=== PATIENT | male | born 1975 | race Caucasian/White ===

== ENCOUNTER 2025-07-09 07:23 | Inpatient (IN) | payer MEDICAID ==
[~2025-07-09] VITALS: Ht 167.6 cm; Wt 107.1 kg
[2025-07-09] MEDS ORDERED: METF-1211 PO (07:32)
[2025-07-09 07:51] LABS: GLUCOMETER DEV NAME(LOC) ER.7; GLUCOSE,POINT OF CARE 492 MG/DL (70-110)
[2025-07-09 07:53] LABS: PLATELET COUNT (AUTO) 174 K/uL (150-450); RED BLOOD CELL COUNT(AUTO) 5.13 MIL/uL (4.50-5.90); RED CELL DISTRIBUTION WIDTH 13.5 % (11.5-14.5); WHITE BLOOD COUNT (AUTO) 24.4 K/uL (4.5-11.0)
[2025-07-09] MEDS: INSULIN REGULAR, HUMAN 100 UNITS/ML IVP ONE (08:05)
[2025-07-09 08:07] LABS: CALCIUM, TOTAL 8.1 mg/dL (8.8-10.5); CREATININE 1.04 mg/dL (0.60-1.30); GLOMERULAR FILTR. RATE CALC > 60 mL/min (>60); SODIUM SERUM 126 mmol/L (136-145); UREA NITROGEN, BLOOD 7 mg/dL (7-18)
[2025-07-09] MEDS: SODIUM CHLORIDE 0.9% 1,000 ML IV ONE ×2 (08:07→08:46)
[2025-07-09 08:09] LABS: GLUCOSE,RANDOM 538 mg/dL (70-110)
[2025-07-09 08:11] LABS: ASPARTATE AMINOTRANSFERASE 12 U/L (15-37); TOTAL PROTEIN, SERUM 6.9 g/dL (6.4-8.2)
[2025-07-09] MEDS: MORPHINE SULFATE 4 MG/ML SYRINGE IVP ONE (08:24)
[2025-07-09] MEDS: ONDANSETRON HCL 4 MG/2 ML VIAL IVP ONE (08:24)
[2025-07-09] MEDS ORDERED: SODIUM CHLORIDE 0.9% 100 ML ONE (08:29)
[2025-07-09] MEDS ORDERED: IOHEXOL 350 MG/ML 100 ML VIAL ONE (08:29)
[2025-07-09] MEDS: PIPERACILLIN/TAZO 3.375 GM/D5W 50 ML IV ONE (08:30)
[2025-07-09] MEDS ORDERED: 0.9% SODIUM CHLORIDE 10 ML SYRINGE IVP PRN (08:30)
[2025-07-09 08:56] LABS: LACTIC ACID 1.6 mmol/L (0.4-2.0)
[2025-07-09 09:12] LABS: APPEARANCE,URINE CLEAR (CLEAR); GLUCOSE, URINE (UA) >=1000 mg/dL (NEGATIVE); LEUKOCYTE ESTERASE ,URINE TRACE (NEGATIVE); NITRATE,URINE NEGATIVE (NEGATIVE); OCCULT BLOOD,URINE NEGATIVE (NEGATIVE); SPECIFIC GRAVITIY, URINE 1.030 (1.003-1.030)
[2025-07-09 10:11] LABS: GLUCOMETER DEV NAME(LOC) ERT.7; GLUCOSE,POINT OF CARE 379 MG/DL (70-110)
[2025-07-09] MEDS: RINGERS SOLUTION,LACTATED 1,000 ML IV SCH (10:16)
[2025-07-09] MEDS: CLINDAMYCIN 300 MG/D5% WATER 50 ML IV SCH (11:38)
[2025-07-09] MEDS ORDERED: FentaNYL CITRATE PF 100 MCG/2 ML VIAL ONE (12:00)
[2025-07-09] MEDS ORDERED: LIDOCAINE/PF 2% 5 ML VIAL ONE (12:00)
[2025-07-09] MEDS ORDERED: DEXAMETHASONE SOD PHOS 4 MG/ML VIAL ONE (12:00)
[2025-07-09] MEDS ORDERED: ROCURONIUM BROMIDE 10 MG/ML 5 ML VIAL ONE (12:00)
[2025-07-09] MEDS ORDERED: CALCIUM CHLORIDE 100 MG/ML 10 ML SYRINGE IVP ONE (12:00)
[2025-07-09] MEDS ORDERED: ONDANSETRON HCL 4 MG/2 ML VIAL ONE (12:00)
[2025-07-09] MEDS ORDERED: SUGAMMADEX SODIUM 200 MG/2 ML VIAL IVP ONE (12:00)
[2025-07-09] MEDS ORDERED: PROPOFOL 1% 20 ML VIAL IVP ONE (12:00)
[2025-07-09] MEDS ORDERED: MIDAZOLAM HCL 2 MG/2 ML VIAL ONE (12:00)
[2025-07-09 12:16] LABS: GLUCOMETER DEV NAME(LOC) ERT.7; GLUCOSE,POINT OF CARE 322 MG/DL (70-110)
[2025-07-09] MEDS: PIPERACILLIN/TAZO 3.375 GM/D5W 50 ML IV SCH (13:26)
[2025-07-09] MEDS: ONDANSETRON HCL 4 MG/2 ML VIAL IVP PRN (14:56)
[2025-07-09] MEDS: MORPHINE SULFATE 4 MG/ML SYRINGE IVP PRN (15:20)
[2025-07-09 16:20] VITALS: BP 128/78; PULSE 107; RESP 17; TEMP 99.3; O2SAT 98
[2025-07-09] MEDS ORDERED: RINGERS SOLUTION,LACTATED 1,000 ML IV ONE (16:37)
[2025-07-09] MEDS: ETHYL ALCOHOL 62% ANTISEPTIC NASAL SANITIZER 0.6 ML AMPUL NASAL ONE (17:38)
[2025-07-09] MEDS: CHLORHEXIDINE GLUCONATE 2% TOWELETTE [2'S/6'S] TP ONE (17:38)
[2025-07-09] MEDS ORDERED: DEXTROSE 50%-WATER 25 GM/50 ML SYRINGE IVP PRN (20:45)
[2025-07-09 20:47] VITALS: BP 123/60; PULSE 115; RESP 17; TEMP 99.1; O2SAT 97
[2025-07-09] MEDS: INSULIN GLARGINE,HUM.REC.ANLOG 100 UNITS/ML SQ SCH (21:11)
[2025-07-09] MEDS: INSULIN LISPRO 100 UNITS/ML SQ PRN (21:12)
[2025-07-09 23:51] VITALS: BP 119/60; PULSE 10; RESP 16; TEMP 99.1; O2SAT 98
[2025-07-10 03:52] VITALS: BP 114/76; PULSE 101; RESP 18; TEMP 100.1; O2SAT 97
[2025-07-10] MEDS: *CLINICAL-LEVOFLOXACIN ORAL DOSING CLINICAL ONE (04:58)
[2025-07-10 06:10] LABS: GLUCOMETER DEV NAME(LOC) 5N.1D; GLUCOSE,POINT OF CARE 296 MG/DL (70-110)
[2025-07-10 06:44] LABS: PLATELET COUNT (AUTO) 162 K/uL (150-450); RED BLOOD CELL COUNT(AUTO) 4.40 MIL/uL (4.50-5.90); RED CELL DISTRIBUTION WIDTH 13.1 % (11.5-14.5); WHITE BLOOD COUNT (AUTO) 22.1 K/uL (4.5-11.0)
[2025-07-10 06:57] LABS: CALCIUM, TOTAL 7.5 mg/dL (8.8-10.5); CREATININE 0.89 mg/dL (0.60-1.30); GLOMERULAR FILTR. RATE CALC > 60 mL/min (>60); GLUCOSE,RANDOM 298 mg/dL (70-110); SODIUM SERUM 127 mmol/L (136-145); UREA NITROGEN, BLOOD 9 mg/dL (7-18)
[2025-07-10 08:09] LABS: BAND NEUTROPHILS % (MANUAL) 9 % (0-5); LYMPHOCYTES % (MANUAL) 4 % (22-44); MONOCYTES % (MANUAL) 5 % (2-9); SEGMENTED NEUTROPHILS % 82 % (40-70)
[2025-07-10 08:11] LABS: GLUCOMETER DEV NAME(LOC) 5S.2E; GLUCOSE,POINT OF CARE 306 MG/DL (70-110)
[2025-07-10 08:11] LABS: GLUCOMETER DEV NAME(LOC) 5S.2E; GLUCOSE,POINT OF CARE 312 MG/DL (70-110)
[2025-07-10] MEDS ORDERED: POTASSIUM CHL 10 MEQ/WATER 50 ML IV PRN (08:30)
[2025-07-10 09:01] VITALS: BP 119/78; PULSE 92; RESP 17; TEMP 98.6; O2SAT 97
[2025-07-10] MEDS: INSULIN GLARGINE,HUM.REC.ANLOG 100 UNITS/ML SQ SCH ×2 (09:23→20:34)
[2025-07-10 11:31] LABS: GLUCOMETER DEV NAME(LOC) 5N.1D; GLUCOSE,POINT OF CARE 337 MG/DL (70-110)
[2025-07-10 11:35] VITALS: BP 123/81; PULSE 72; RESP 17; TEMP 98.1; O2SAT 98
[2025-07-10 11:55] LABS: GLUCOMETER DEV NAME(LOC) 5S.2E; GLUCOSE,POINT OF CARE 355 MG/DL (70-110)
[2025-07-10] MEDS: POTASSIUM CHLORIDE 20 MEQ ER TABLET PO PRN (11:56)
[2025-07-10 16:12] VITALS: BP 137/81; PULSE 101; RESP 18; TEMP 98.1; O2SAT 97
[2025-07-10] MEDS: HEPARIN SODIUM,PORCINE 5,000 UNITS/ML VIAL SQ SCH (16:30)
[2025-07-10 18:46] LABS: GLUCOMETER DEV NAME(LOC) 5N.1D; GLUCOSE,POINT OF CARE 255 MG/DL (70-110)
[2025-07-10 20:17] VITALS: BP 114/62; PULSE 95; RESP 19; TEMP 100.6; O2SAT 98
[2025-07-10] MEDS: ACETAMINOPHEN 325 MG TABLET PO PRN (20:32)
[2025-07-10] MEDS: CLINDAMYCIN 300 MG/D5% WATER 50 ML IV SCH (20:32)
[2025-07-10] MEDS: *CLINICAL-LEVOFLOXACIN IVPB DOSING CLINICAL ONE (21:45)
[2025-07-10 22:31] LABS: GLUCOMETER DEV NAME(LOC) 5N.1D; GLUCOSE,POINT OF CARE 303 MG/DL (70-110)
[2025-07-11] VITALS (8 sets, daily range): BP systolic 111–146; BP diastolic 61–86; PULSE 83–97; RESP 17–19; TEMP 97.5–99.1; O2SAT 95–99
[2025-07-11 07:10] LABS: GLUCOMETER DEV NAME(LOC) 5N.1D; GLUCOSE,POINT OF CARE 278 MG/DL (70-110)
[2025-07-11] MEDS: LEVOFLOXACIN 750 MG/D5% WATER 150 ML IV SCH (09:13)
[2025-07-11 10:41] LABS: GLUCOMETER DEV NAME(LOC) 5S.1E; GLUCOSE,POINT OF CARE 249 MG/DL (70-110)
[2025-07-11 12:01] LABS: GLUCOMETER DEV NAME(LOC) 5N.1D; GLUCOSE,POINT OF CARE 268 MG/DL (70-110)
[2025-07-11] MEDS: INSULIN GLARGINE,HUM.REC.ANLOG 100 UNITS/ML SQ SCH (20:39)
[2025-07-11 22:56] LABS: GLUCOMETER DEV NAME(LOC) 5S.2E; GLUCOSE,POINT OF CARE 260 MG/DL (70-110)
[2025-07-11 22:56] LABS: GLUCOMETER DEV NAME(LOC) 5S.2E; GLUCOSE,POINT OF CARE 207 MG/DL (70-110)
[2025-07-12 04:07] VITALS: BP 125/68; PULSE 88; RESP 18; TEMP 98.6; O2SAT 98
[2025-07-12 06:07] LABS: PLATELET COUNT (AUTO) 211 K/uL (150-450); RED BLOOD CELL COUNT(AUTO) 4.30 MIL/uL (4.50-5.90); RED CELL DISTRIBUTION WIDTH 13.0 % (11.5-14.5); WHITE BLOOD COUNT (AUTO) 13.6 K/uL (4.5-11.0)
[2025-07-12 06:13] LABS: CALCIUM, TOTAL 7.4 mg/dL (8.8-10.5); CREATININE 0.82 mg/dL (0.60-1.30); GLOMERULAR FILTR. RATE CALC > 60 mL/min (>60); GLUCOSE,RANDOM 119 mg/dL (70-110); SODIUM SERUM 134 mmol/L (136-145); UREA NITROGEN, BLOOD 4 mg/dL (7-18)
[2025-07-12 06:41] LABS: GLUCOMETER DEV NAME(LOC) 5S.2E; GLUCOSE,POINT OF CARE 107 MG/DL (70-110)
[2025-07-12] MEDS ORDERED: SODIUM CHLORIDE 0.9% 500 ML IV ONE (08:33)
[2025-07-12 10:11] LABS: GLUCOMETER DEV NAME(LOC) 6N.2C; GLUCOSE,POINT OF CARE 189 MG/DL (70-110)
[2025-07-12] MEDS: *CLINICAL-LEVOFLOXACIN ORAL DOSING CLINICAL ONE (12:14)
[2025-07-12] MEDS: POTASSIUM CHLORIDE 20 MEQ ER TABLET PO ONE (12:27)
[2025-07-12 13:31] LABS: GLUCOMETER DEV NAME(LOC) 6N.2C; GLUCOSE,POINT OF CARE 195 MG/DL (70-110)
[2025-07-12] MEDS: CefTRIAXone SODIUM 2 GM in DEXTROSE 5%-WATER 50 ML IV SCH (14:07)
[2025-07-12 16:00] VITALS: BP 151/87; PULSE 88; RESP 20; TEMP 99.5; O2SAT 95
[2025-07-12 20:02] VITALS: BP 153/84; PULSE 92; RESP 18; TEMP 98.6; O2SAT 96
[2025-07-12 20:16] LABS: GLUCOMETER DEV NAME(LOC) 6N.2C; GLUCOSE,POINT OF CARE 158 MG/DL (70-110)
[2025-07-12 21:36] LABS: GLUCOMETER DEV NAME(LOC) 6N.2C; GLUCOSE,POINT OF CARE 177 MG/DL (70-110)
[2025-07-13 04:39] VITALS: BP 146/90; PULSE 60; RESP 18; TEMP 98.6; O2SAT 97
[2025-07-13 06:15] LABS: GLUCOMETER DEV NAME(LOC) 6N.2C; GLUCOSE,POINT OF CARE 127 MG/DL (70-110)
[2025-07-13 08:00] VITALS: BP 121/68; PULSE 99; RESP 20; TEMP 97.9; O2SAT 97
[2025-07-13] MEDS ORDERED: [UNRECOGNIZED DRUG - CODE] SQ (10:51)
[2025-07-13] MEDS ORDERED: AMOX-457 PO (10:51)
[2025-07-13] MEDS ORDERED: METF-1211 PO (10:51)
[2025-07-13] MEDS ORDERED: LEVO750T68 PO (10:51)
[2025-07-13] MEDS ORDERED: INSLAN SQ (10:51)
[2025-07-13] MEDS: LEVOFLOXACIN 750 MG/D5% WATER 150 ML IV SCH (10:59)
[2025-07-13] MEDS ORDERED: SODIUM CHLORIDE 0.9% IRRIG BTL 1,000 ML IRRIG ONE (12:24)
[2025-07-13 16:00] VITALS: BP 113/63; PULSE 62; RESP 20; TEMP 97.9; O2SAT 95
[2025-07-14 04:10] LABS: GLUCOMETER DEV NAME(LOC) 6N.2C; GLUCOSE,POINT OF CARE 202 MG/DL (70-110)
== END 2025-07-13 18:30 | disposition home or self-care (01) | DRG 720 ==
LOC: EMS 07:32 → EDH 09:46 → 5S 13:45 → 6S 07-12 07:55
PROVIDERS: ADMIT Internal Medicine; ATTEND Internal Medicine
PROC: 0JB90ZZ Excision of Buttock Subcutaneous Tissue and Fascia, Open Approach (ICD-10-PCS; principal; 2025-07-09 18:20)
DX: A41.51 Sepsis due to Escherichia coli [E. coli] (principal); D65 Disseminated intravascular coagulation [defibrination syndrome]; N49.3 Fournier gangrene; D68.8 Other specified coagulation defects; L02.31 Cutaneous abscess of buttock; K61.1 Rectal abscess; E11.65 Type 2 diabetes mellitus with hyperglycemia; K62.89 Other specified diseases of anus and rectum; D68.9 Coagulation defect, unspecified; Z56.0 Unemployment, unspecified; Z79.899 Other long term (current) drug therapy
CPT/HCPCS: 74177; 80048; 80053; 81001; 82962; 83605; 83735; 84132; 84145; 85025; 85610; 85730; 87040; 87070; 87077; 87186; 87205; 88304; 93005; 96361; 96365; 96375; 99291; G0378; J0696; J1100; J1171; J1644; J1815; J1956; J2250; J2270; J2405; J2543; J2704; J3010; J3490; J7040; J7050; J7060; J7120; 36415-L1; 36415-TC